=== PATIENT | male | born 1965 | race Caucasian/White ===

== ENCOUNTER → 2016-09-05 | Outpatient (CLI) | payer MEDICAID ==
[~2016-09-05] MED LIST: ALBU18HF INH; ASPI-496 PO; CYAN1TAB29 PO; FLUT1AER INH; FLUT1BLS INH; FURO20TA3 PO; INSU100V8 SQ; LEVO175T5 PO; LISI1TAB3 PO; LOSA25TA5 PO; METF100010 PO; OMEP-110 PO; OXYC1TAB7 PO; POTA10TA5 PO; RANI150T4 PO; SIMV20TA3 PO; budesonide PO
== END | disposition home or self-care (01) ==
LOC: PETCFH 10:13
PROVIDERS: ATTEND Internal Medicine Gastroenterology
DX: K22.70 Barrett's esophagus without dysplasia (principal); R68.81 Early satiety; R19.4 Change in bowel habit
CPT/HCPCS: 78264; A9541

== ENCOUNTER → 2016-09-08 | Outpatient (CLI) | payer MEDICAID | END | disposition home or self-care (01) | LOC: RAD 09:47 | PROVIDERS: ATTEND Nurse Practitioner Family | DX: R06.02 Shortness of breath (principal); R60.9 Edema, unspecified; R53.83 Other fatigue; Z87.81 Personal history of (healed) traumatic fracture | CPT/HCPCS: 71020 ==